=== PATIENT | male | born 1965 | race Caucasian/White ===

== ENCOUNTER → 2024-02-15 12:24 | Outpatient (REF) | payer MEDICARE, OTHER, SELFPAY | LOC: HWRAD 12:24 | PROVIDERS: ATTENDING PHYSICIAN Internal Medicine Geriatric Medicine | DX: Z11.1 Encounter for screening for respiratory tuberculosis (principal) | CPT/HCPCS: 71046 ==

== ENCOUNTER 2024-04-17 12:36 | Emergency (ER) | payer MEDICARE, OTHER, SELFPAY ==
[2024-04-17] VITALS (7 sets, daily range): BP systolic 118–137; BP diastolic 67–78; BMI 32.2
[2024-04-17 13:12] LABS: % Basophils 0.7 % (0-2); % Eosinophils 2.8 % (0-6); % Immature Granulocytes 0.3 % (0-0.5); % Lymphocytes 18.4 % (20.5-51.1); % Monocytes 14.1 % (1.7-9.3); % Neutrophils 63.7 % (42.2-75.2); Absolute Eosinophils 0.2 10^3/uL (0-0.7); Absolute Lymphocytes 1.1 10^3/uL (1.2-3.4); Absolute Monocytes 0.8 10^3/uL (0.1-0.6); Absolute Neutrophils 3.7 10^3/uL (1.4-6.5); Hemoglobin 14.1 g/dL (13.0-18.0); Mean Corp Hgb Conc. 32.8 g/dL (33.0-37.0); Mean Corpuscular Hgb 28.3 pg (27.0-31.0); Mean Corpuscular Volume 86.2 fL (80.0-94.0); Mean Platelet Volume 9.4 fL (7.4-10.4); Nucleated Red Blood Cells % 0 % (-); Platelet Count 209 10^3/uL (130-400); Red Blood Cell Count 4.99 10^6/uL (4.70-6.10); Red Cell Dist. Width 12.9 % (11.5-14.5); White Blood Cell Count 5.8 10^3/uL (4.8-10.8)
[2024-04-17 13:27] LABS: ALT (SGPT) 22 U/L (0-50); AST (SGOT) 18 U/L (17-59); Albumin 3.8 g/dl (3.5-5.0); Alkaline Phosphatase 164 U/L (38-126); Blood Urea Nitrogen 13 mg/dl (9-20); Calcium 10.5 mg/dl (8.4-10.2); Carbon Dioxide 31 mmol/L (22-30); Chloride 99 mmol/L (98-107); Glucose 134 mg/dl (70-99); Potassium 4.2 mmol/L (3.5-5.1); Sodium 137 mmol/L (135-145); Total Bilirubin 0.8 mg/dl (0.2-1.3); Total Protein 6.5 g/dl (6.3-8.2); eGFR > 60.00
--- NOTE | 2024-04-17 13:30 | ED.GENMED ---
History of Present Illness
General
Chief Complaint: Overdose Unintentional
Source: patient
Exam Limitations: none
Time Seen by Provider: 04/17/24 13:27
Nursing documentation reviewed up to this point in time: agreed with
History of Present Illness
History of Present Illness:
58-year-old male with past medical history of Parkinson's disease, TBI, hypertension, GERD, hypothyroidism, schizoaffective disorder who presents to the emergency room from [facility] where he lives long-term; he was sent in
for evaluation after ingesting mouthwash and cologne. Patient reportedly at baseline has slurred speech and is difficult to understand due to his TBI and Parkinson's disease; according to staff for spoke with directly he was acting essentially at
his baseline (they said he might have been 'a bit more hyper'). This morning he disclosed to his therapist that he drank cologne and mouthwash in an attempt to 'get high.' Time of ingestion unclear, patient cannot tell me exactly when he did it
but it sounds like ingestion was earlier today. He readily admits that he did this in attempt a get high and that he was not trying to harm himself. Apparently he has done this in the past years ago but has not had any recent issues per staff. He
feels generally well here he denies any complaints. Denies feeling nauseous or vomiting, denies any abdominal pain or any other issues. He denies any other ingestions. Fortunately patient was sent with bottles of both his mouthwash and
cologne�mouthwash he is alcohol free Vigilos brand 118 mL bottle which contains water, sorbitol, propylene glycol, benzoic acid, sodium benzoate, sodium sacchrine; mouthwash is Brut 147 mL bottle which contains alcohol, water, castor oil, benzyl
benzoate, menthol.
Review of Systems
Review of Systems
All Other Systems: ROS reviewed and negative except as documented in HPI and ROS
Respiratory: Denies trouble breathing
Cardiac: Denies chest pain
ABD/GI: Denies abdominal pain, nausea or vomiting
: Denies flank pain
Musculoskeletal: Denies neck pain or back pain
Neurological: Denies headache
Psychiatric: Denies suicidal
Phy Exam
Physical Exam
Physical Exam:
General: Awake, alert, dysarthria which is apparently at baseline very difficult to understand; does not appear in acute distress
Head: Normocephalic, atraumatic
Eyes: Conjunctiva normal, pupils 4 mm and reactive to light bilaterally
Throat: Airway intact, handling secretions
Neck: Trachea midline
Lungs: Clear to auscultation bilaterally, no wheezing, rales, rhonchi
Heart: Regular rate and rhythm, no murmurs, gallops, or rubs
Abd: Soft, non distended, nontender
Skin: no rash, warm and dry
Extremities: No edema in extremities, equal pulses in all extremities
Scores
Heart Failure Risk
Heart Failure Risk Score: Not Applicable
Heart Score for Chest Pain Patients
STEMI patient?: Not applicable
Withdrawal Assessment of Alcohol
Withdrawal Assessment Completed?: Not applicable
Course
Orders/Labs/Results
Orders:
Orders
04/17/24 12:57
Acetaminophen Urgent
Comment: ADD ON
Alcohol Urgent
CMP [Comprehensive Metabolic Panel] Urgent
Complete Blood Count/With Diff Urgent
Salicylate Urgent
Comment: ADD ON
04/17/24 13:35
Electrocardiogram (*1) Urgent
Reason for Study: QTc Monitoring
EKG- Treatment ONCE
04/17/24 14:01
Add On- LAB Urgent
Tests Added?: ETOH, Tylenol, ASA level
04/17/24 14:07
Drug Screen, Urine [Urine Drug Abuse Screen] Urgent
Date Specimen was Collected: 04/17/24
Time Specimen was Collected: 14:06
Abnormal Lab Results
04/17/24
12:57
MCHC 32.8 L g/dL
(33.0-37.0)
Absolute Lymphs (auto) 1.1 L 10^3/uL
(1.2-3.4)
Absolute Monos (auto) 0.8 H 10^3/uL
(0.1-0.6)
Lymphocytes % 18.4 L %
(20.5-51.1)
Monocytes % 14.1 H %
(1.7-9.3)
Carbon Dioxide 31 H mmol/L
(22-30)
Glucose 134 H mg/dl
(70-99)
Calcium 10.5 H mg/dl
(8.4-10.2)
Alkaline Phosphatase 164 H U/L
(38-126)
Salicylates < 1.0 L mg/dl
(2.0-20.0)
Acetaminophen < 10 L ug/ml
(10-30)
04/17/24 12:57
04/17/24 12:57
Vital Signs
Initial and Last Documented VS:
Initial Vital Signs
Pulse Resp Pulse Ox
68 19 96
04/17/24 12:39 04/17/24 12:39 04/17/24 12:39
Last Documented Vital Signs
Temp Pulse Resp BP Pulse Ox
36.6 C 91 28 132/77 93
04/17/24 12:42 04/17/24 17:15 04/17/24 17:15 04/17/24 17:00 04/17/24 17:00
MDM/Problems Addressed
Differential Diagnosis Includes:
Intentional ingestion
MDM/Problems Addressed:
58-year-old male presents after an intentional ingestion of 3 small bottles of mouthwash and cologne as described above; he says that he did this in attempt to 'get high.' Disclosed to his therapist today and was sent for evaluation. Apparently
was acting 'a bit more hyper' than usual but otherwise normal�he has slurred speech at baseline related to TBI and Parkinson's disease. Vitals and exam as above. Discussed case with poison control and reviewed ingredients and amount of
ingestion�main ingredient of note is ethanol and cologne, other ingredients unlikely to be clinically significant toxins in this case. Nevertheless recommended checking labs including a CBC and a CMP, alcohol, salicylate, Tylenol levels as well as
a screening EKG. Will observe in the emergency room. Reassess.
Patient stable on clinical reassessment. Labs reviewed his CBC and CMP showed no clinically significant abnormalities. Alcohol level negative. Tylenol salicylate level negative. Continue to monitor here in the ER.
Patient monitored for 6 hours here has been persistently well-appearing, normal vitals. He is up walking around, ate and drank a full lunch tray. Stable for discharge.
Chronic conditions affecting care:
TBI and Parkinson's disease
*Pulse Oximetry
Patient hypoxic: no
*EKG
Interpreted by ED Provider?: Yes
Heart Rate: 64
Rate: normal
Rhythm: sinus
[place]: normal axis
Interval: normal interval
QRS Pattern: normal QRS
Ischemia: other (Nonspecific T wave abnormality)
*Critical Care Note
Total Time (30-74mins, 75-104mins- exclusive of procedures): Not Applicable
Data Reviewed
Review of Other/Old Records Reveals: Labs and Records
Source: patient and detention (Discussed directly with detention staff)
Patient Management
Discussion with other providers: Paleontology Teacher (Discussed with poison control)
ED Attending Note
-
Portions of this chart may have been created with voice recognition software.� Occasional wrong word or��sound alike� substitutions may have occurred due to the inherent limitations of voice recognition software.
Discharge Plan
Departure
Patient Disposition: Home (Routine Discharge)
Date of Disposition: 04/17/24
Time of Disposition: 18:12
Patient with high blood pressure during this ER visit?: No
Discharge Problem:
Ingestion of foreign substance
Prescriptions:
No Action
metformin 500 mg Tablet
500 mg PO BID
atorvastatin [Lipitor] 80 mg Tablet
80 mg PO QPM
ipratropium-albuterol [DuoNeb] 0.5 mg-3 mg(2.5 mg base)/3 mL Solution For Nebulization
3 ml INHALATION R QIDPRN PRN (Reason: sob)
trazodone 50 mg Tablet
75 mg PO HS
olanzapine 10 mg Tablet
10 mg PO BID
melatonin 3 mg Tablet
3 mg PO HS
aspirin 81 mg Tablet,Delayed Release (Dr/Ec)
81 mg PO DAILY
amantadine HCl 100 mg Capsule
100 mg PO BID
levothyroxine [Synthroid] 25 mcg Tablet
25 mcg PO DAILY
docusate sodium [Colace] 100 mg Capsule
100 mg PO BID
budesonide 0.5 mg/2 mL Suspension For Nebulization
0.5 mg INHALATION R BIDPRN PRN (Reason: sob)
doxazosin 4 mg Tablet
4 mg PO DAILY
metoprolol succinate [Toprol XL] 25 mg Tablet Extended Release 24 Hr
25 mg PO DAILY
escitalopram oxalate [Lexapro] 20 mg Tablet
20 mg PO DAILY
levetiracetam [Keppra] 1,000 mg Tablet
1,000 mg PO BID
insulin glargine [Basaglar KwikPen U-100 Insulin] 100 unit/mL (3 mL) Insulin Pen
15 unit SC HS
fluticasone furoate-vilanterol [Breo Ellipta] 100-25 mcg/dose Blister With Device
1 inh INHALATION R DAILY
Jardiance 10 mg Tablet
10 mg PO DAILY
Referrals:
Vitaliy Mcclendon DO [Family Provider] - Follow up in 2-3 days
Activity Restrictions/Additional Instructions:
Thank you for visiting the Emergency Department at [facility].
1. Please schedule a follow up appointment as directed. Call first thing tomorrow morning to make an appointment.
2. If indicated, please take your medications as instructed and indicated on discharge paperwork.
3. If any of your symptoms do not improve, or persist, or become more severe within 6-12 hours, please return to the emergency department for further care.
4. Please return to the emergency department if you develop a headache, neck pain/stiffness, fever greater than 100.4F, chest pain, shortness of breath, persistent nausea, vomiting, slurred speech, difficulty walking, numbness/tingling, weakness,
signs of infection or any other symptoms that are worrisome to you.
Please call [phone] if you have any questions.
Interventions
Interventions:
*Risk Screen - Suicide Last Done: 04/17/24 12:42
*General Assessment Last Done: 04/17/24 12:42
*Neglect/Abuse Screening Last Done: 04/17/24 12:42
*ED COVID-19 Vaccine History Last Done: 04/17/24 12:42
ED- Cardiac Assessment Last Done: 04/17/24 12:42
ED- Neurological Assessment Last Done: 04/17/24 12:42
ED-Psychological Assessment Last Done: 04/17/24 12:42
ED- Pulmonary Assessment Last Done: 04/17/24 12:42
Discharge Date and Time
Print Language: SOU[place] AFR[place]
[2024-04-17 14:16] LABS: Acetaminophen < 10 ug/ml (10-30); Salicylate < 1.0 mg/dl (2.0-20.0)
[2024-04-17 14:18] LABS: Alcohol None Detected
[2024-04-17 16:03] LABS: Amphetamines Negative (Negative); Barbiturates Negative (Negative); Benzodiazepines Negative (Negative); Buprenorphine Negative (Negative); Cocaine Negative (Negative); Marijuana Negative (Negative); Methadone Negative (Negative); Methamphetamines Negative (Negative); Opiates Negative (Negative); Phencyclidine Negative (Negative); Tricyclic Antidepressants Negative (Negative)
== END 2024-04-17 20:50 ==
LOC: EMR 12:36
PROVIDERS: Emergency Medicine; EMERGENCY PHYSICIAN Emergency Medicine; FAMILY PHYSICIAN Internal Medicine Geriatric Medicine
DX: T49.6X1A Poisoning by otorhinolaryngological drugs and preparations, accidental (unintentional), initial encounter (principal); T65.891A Toxic effect of other specified substances, accidental (unintentional), initial encounter; Y92.099 Unspecified place in other non-institutional residence as the place of occurrence of the external cause; R47.81 Slurred speech; G20.A1 Parkinson's disease without dyskinesia, without mention of fluctuations; E03.9 Hypothyroidism, unspecified; Z87.820 Personal history of traumatic brain injury; I10 Essential (primary) hypertension; K21.9 Gastro-esophageal reflux disease without esophagitis
CPT/HCPCS: 99284; 80053; 80143; 80179; 80306; 82077; 85025; 93005